=== PATIENT | male | born 1955 | race Caucasian/White ===

== ENCOUNTER 2020-03-19 21:19 | Outpatient (CLI) | payer MEDICARE, OTHER | END 2020-03-19 21:20 | disposition short-term general hospital (02) | LOC: EMS 21:19 | PROVIDERS: ATTEND Surgery | DX: R10.10 Upper abdominal pain, unspecified (principal); R11.2 Nausea with vomiting, unspecified | CPT/HCPCS: A0425; A0429 ==

== ENCOUNTER 2020-11-02 00:25 | Outpatient (CLI) | payer MEDICARE, OTHER | END 2020-11-02 00:26 | disposition short-term general hospital (02) | LOC: EMS 00:25 | DX: R10.9 Unspecified abdominal pain (principal) | CPT/HCPCS: A0425; A0429 ==